=== PATIENT | female | born 1990 ===

== ENCOUNTER → 2024-10-04 | Outpatient (CLI) | payer MEDICARE, OTHER ==
[~2024-10-04] MED LIST: ALAVERT; ALBU90OI; CEPH500 PO; DIPH25; HYDACE5 PO; MULVITMINE PO; SALMOI6.5
== END | disposition home or self-care (01) ==
LOC: LAB SHORT 12:09 → LAB 12:09
DX: N39.0 Urinary tract infection, site not specified (principal)
CPT/HCPCS: 87077; 87086; 87186